=== PATIENT | female | born 2005 | race African-American/Black ===

== ENCOUNTER 2024-01-25 23:30 | Emergency (ER) | payer OTHER ==
[~2024-01-25] VITALS: Ht 175.3 cm; Wt 109.1 kg
[2024-01-25 23:38] VITALS: TEMP 98.3
[2024-01-26 01:38] VITALS: BP 107/76; PULSE 89
== END 2024-01-26 01:40 | disposition home or self-care (01) ==
LOC: COL.ER 23:30
DX: F12.10 Cannabis abuse, uncomplicated (principal)